=== PATIENT | male | born 2000 | race African-American/Black ===

== ENCOUNTER 2024-06-25 17:46 | Emergency (ER) | payer OTHER, SELFPAY ==
[2024-06-25 17:55] VITALS: BP 112/67; PULSE 90; RESP 16; TEMP 36.2; O2SAT 97; BMI 25.0
--- NOTE | 2024-06-25 18:07 | ED.GENADULT ---
HPI - General Adult General Date Seen: 06/25/24 Chief complaint: Skin/Abscess/Foreign Body Stated complaint: possible spider bite L thigh Time Seen by Provider: 06/25/24 18:05 History of Present Illness HPI narrative: 23-year-old her knee previously healthy male presenting to the ER today with his fiancee for evaluation of a ?spider bite? on his left medial proximal thigh. He noticed a small pimple on his left medial thigh about 2 days ago. He initially thought it probably was just that, a pimple. Since that has been getting gradually more painful and more swollen. Yesterday was larger, about the size of a quarter. Today there was a swollen area that is probably 2-3 cm in diameter surrounded by a fairly large area of erythema. He is having pain on the left medial thigh because it is tender. No other pain. No body aches. No fevers or chills. He is not diabetic or immunosuppressed. No history of MRSA. No other skin lesions. Related Data Previous Rx's ?Medication ?Instructions ?Recorded cephalexin 500 mg capsule 500 mg PO QID #28 caps 06/25/24 sulfamethoxazole 800 1 tab PO BID #14 tabs 06/25/24 mg-trimethoprim 160 mg tablet (Bactrim DS) Allergies Allergy/AdvReac Type Severity Reaction Status Date / Time No Known Drug Allergies Allergy Verified 06/25/24 17:59 [facility] Social History Smoking Status: Never smoker Do you use any of these nicotine containing products: None Second hand tobacco smoke exposure: No How often do you have a drink containing alcohol: never AUDIT-C Alcohol total score: 0 Non-prescribed substance use: denies use service: No Exam Narrative: Exam Narrative: Constitutional: Appears well-developed and well-nourished. Alert. Conversant. Non toxic. HENT: Head: Atraumatic. Nose: Nose normal. Mouth/Throat: Oral mucosa is clear and moist. no trismus. Eyes: Conjunctivae normal. EOM normal. Pupils equal, round, and reactive to light. No scleral icterus. Neck: Normal range of motion. Neck supple. No tracheal deviation present. Cardiovascular: Normal rate, regular rhythm. No gallop. No friction rub. No murmur heard. Symmetric radial artery pulses Pulmonary/Chest: Effort normal. No stridor. No respiratory distress. No wheezes. No rales. No rhonchi . No tenderness. Abdominal: Soft. Bowel sounds normal. No distension. No mass. No tenderness. No rebound. No guarding. Musculoskeletal: RUE: Normal range of motion. No tenderness. No deformity LUE: Normal range of motion. No tenderness. No deformity RLE: Normal range of motion. No edema. No tenderness. No deformity LLE: Normal range of motion. No edema. No tenderness. No deformity Lymph: No inguinal adenopathy. Neurological: Alert and oriented to person, place, and time. Normal strength. CN II-VII intact. No sensory deficit. GCS eye subscore is 4. GCS verbal subscore is 5. GCS motor subscore is 6. Normal coordination Skin: Patient has an area of erythema roughly 7 x 10 cm on his left medial thigh. Does not extend up to the groin. In the center of this there is or of a 2 x 3 cm area of indurated tissue and I suspect some fluctuance. In the center of this there is a small break in the skin that was probably a small pimple. No active drainage. No crepitus. Skin is otherwise warm and dry. No rash noted. No pallor. Normal capillary refill. Psychiatric: Normal mood. Normal affect. Const: Vital Signs, click to edit/add: Vital Signs - 24 hr 06/25/24 17:55 Temperature 97.1 F L Pulse Rate [Pulse Oximeter] 90 Respiratory Rate 16 Blood Pressure [Ri ght Upper Arm] 112/67 Pulse Oximetry 97 Oxygen Delivery Me thod Room Air Course Course ED Course: Exam is consistent with a left medial thigh cellulitis and probable abscess. I do not think this is a spider bite. Discussed with patient and his fiancee. They understand and agree. Bedside ultrasound performed. Procedure: Bedside ultrasound Indication: Skin infection, evaluate for abscess and fluid collection Using sterile technique and the high-frequency linear array probe we evaluated the area of redness and swelling on the patient's left medial thigh. We did discover a hypoechoic area area of fluid just below the skin measuring about 1 cm by 1 by 0.6 cm Impression: Positive for abscess Procedure: Incision and drainage. Discussed options and risk/pannus is with the procedure with the patient has fiance. Verbal consent was obtained. Sterile preparation of the skin using Betadine. Anesthesia was with local infiltration of 5 mL of 1% lidocaine with epi. Good anesthesia achieved. We made a single linear incision using 11 blade scalpel into the area of fluid. We did achieve purulent drainage. We expressed all purulent fluid. There was also minimal bleeding. Patient tolerated well with no discomfort. Vital Signs Vital signs: Initial Vital Signs Temperature 97.1 F L 06/25/24 17:55 Temperature Source Temporal Artery Scan 06/25/24 17:55 Pulse Rate 90 06/25/24 17:55 Pulse Rhythm Regular 06/25/24 17:55 Respiratory Rate 16 06/25/24 17:55 Blood Pressure 112/67 06/25/24 17:55 Blood Pressure Mean 82 06/25/24 17:55 Blood Pressure Position Sitting 06/25/24 17:55 Pulse Oximetry 97 06/25/24 17:55 Oxygen Delivery Method Room Air 06/25/24 17:55 Vital Signs Temperature 97.1 F L 06/25/24 17:55 Pulse Rate 90 06/25/24 17:55 Respiratory Rate 16 06/25/24 17:55 Blood Pressure 112/67 06/25/24 17:55 Pulse Oximetry 97 06/25/24 17:55 Oxygen Delivery Method Room Air 06/25/24 17:55 Temperature 97.1 F L 06/25/24 17:55 Pulse Rate 90 06/25/24 17:55 Respiratory Rate 16 06/25/24 17:55 Blood Pressure 112/67 06/25/24 17:55 Pulse Oximetry 97 06/25/24 17:55 Oxygen Delivery Method Room Air 06/25/24 17:55 Medications Administered Medications: Discontinued Medications Generic Name Dose Route Start Last Admin Trade Name Raquel PRN Reason Stop Dose Admin Cephalexin HCl 500 mg 06/25/24 19:14 06/25/24 19:23 Cephalexin 500 Mg Capsule PO 06/25/24 19:15 500 mg ONCE ONE Administration Lidocaine/Epinephrine 10 ml 06/25/24 18:34 06/25/24 19:18 Lidocaine 1%-Epi 1:100,000 10 Ml INFILTRATI 06/25/24 18:35 10 ml ONCE ONE Administration Trimethoprim/Sulfamethoxazole 1 tab 06/25/24 19:14 06/25/24 19:23 Sulfamethoxazole-Tmp Ds 800mg/160mg Tablet PO 06/25/24 19:15 1 tab ONCE ONE Administration Medical Decision Making MDM Narrative Medical decision making narrative: This patient presents with left medial thigh pain and redness. Pt has signs of an abscess. I&D performed and successfully expressed purulent drainage; see procedure note. No signs of serious infx like necrotizing fasciitis or rapid cellulitis given fever curve, spread of erythema over past 24 hours, no crepitance to tissues, no sensation change to tissues. Will need wound cares q day. Plan home w/ primary; may return to ED for wound check in 48 hours if cannot arrange. This was a small abscess pocket and would not be amenable to packing at this point. Antibiotics given as has some erythema and concerns about cellulitis. Will start on Bactrim and cephalexin to cover for MRSA as well as other skin sukhjinder. Warning signs for wound given on discharge instructions and verbally; see d/c instructions. Discharge Plan Discharge Clinical Impression: Abscess, Cellulitis Patient Disposition: Home, Self-Care Condition: Stable Instructions: Cellulitis (ED), Abscess (ED), Incision and Drainage (ED) Additional Instructions: As we discussed, start on the antibiotics tomorrow morning (you had your 1st dose here in the ER). Monitor the infected area carefully. If you have worsening swelling or spreading redness, develops high fever, or weakness, please come back to the ER right away. It will usually take 2 or 3 days of being on the antibiotics for the redness will start to get smaller. If you have any concerns, remember, come back to the ER right away. Prescriptions: New cephalexin 500 mg capsule 500 mg PO QID Qty: 28 0RF sulfamethoxazole-trimethoprim [Bactrim DS] 800-160 mg tablet 1 tab PO BID Qty: 14 0RF Stand Alone Forms: My[facility] Info Instructions
[2024-06-25] MEDS: cephALEXin 500 MG CAPSULE PO (19:23)
== END 2024-06-25 19:31 | disposition home or self-care (01) ==
LOC: ED 19:30
PROVIDERS: Emergency Provider Emergency Medicine
DX: L02.416 Cutaneous abscess of left lower limb (principal); L03.116 Cellulitis of left lower limb
CPT/HCPCS: 10060; 93971; 99282; 99283; A9270

== ENCOUNTER 2025-04-29 15:38 | Emergency (ER) | payer OTHER, SELFPAY ==
--- OUTSIDE RECORDS SUMMARY | 2025-04-29 15:40 | XMS_ITS | Referral Summary ---
Author Organization 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 20 tablet 06/10/2022 Active Social History Tobacco Use Types Packs/Day Years Used Date Smoking Tobacco: Never Assessed Humiliation, Afraid, Rape, and Kick questionnair e Answer Date Recorded Within the last year, have y ou been afraid of your partner or ex-partner? No 04/21/2024 Within the last year, have y ou been humiliated or emotionally abused in other ways by your partner or ex-partner? No Within the last year, have y ou been kicked, hit, slapped, or otherwise physically hurt by your partner or ex-partner? No 04/21/2024 Within the last year, have y ou been raped or forced to have any kind of sexual activity by your partner or ex-partner? No 04/21/2024 Sex and Gender Information Value Date Recorded Sex Assigned at Not on file Legal Sex Male 7:36 AM CDT Gender Identity Not on file Sexual Orientation Not on file Last Filed Vital Signs Vital Sign Reading Time Taken Comments Blood Pressure 114/74 04/21/2024 2:01 PM CDT Pulse 65 04/21/2024 2:01 PM CDT Temperature 36.8 C (98.2 F) 04/21/2024 2:01 PM CDT Respiratory Rate 16 04/21/2024 2:01 PM CDT Oxygen Saturation 100% 04/21/2024 2:01 PM CDT Inhaled Oxygen Concentration - - Weight - - Height 188 cm (6' 2) 04/21/2024 11:44 AM CDT Body Mass Index - - Plan of Treatment Not on file Insurance [employer] Care Teams Creamery Worker Relationship Specialty Start Date End Date Clinic, No Primary PCP - Primary Care Clinic 07/31/21 NoneMd PCP - General 07/31/21
--- OUTSIDE RECORDS SUMMARY | 2025-04-29 15:40 | XMS_ITS | Clinical Summary ---
Author Organization 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 Name Role Phone Clinic, No Primary Unavailable [...] Mass Index - - Plan of Treatment Health Maintenance Due Date Last Done Comments Hepatitis C Screening 1998 Anxiety Screening (DIONY-2) 1999 Depression Assessment (PHQ-2) 1999 Adult Tetanus Booster 12/14/2019 12/14/2009 COVID-19 Vaccine (2023-2 5 season) 2024 Influenza Vaccine (Season Ended) 2025 12/13/2015, 12/14/2009 RSV Vaccines (1 - 1-dose 75+ series) 2073 HPV Vaccine Completed 05/16/2013, 10/07/2012, 08/28/2012 Meningococcal B Vaccine Aged Out No l onger eligible based on patient's age to complete this topic Pneumococcal Vaccine Aged Out No long er eligible based on patient's age to complete this topic [place] [id number] Care Teams Cook Ice Cream Relationship Specialty Start Date End Date Clinic, No Primary PCP - Primary Care Clinic 07/31/21 Md Sarah PCP - General 07/31/21
[2025-04-29 15:58] VITALS: BP 118/74; PULSE 97; RESP 16; TEMP 36.8; O2SAT 97; BMI 24.4
[2025-04-29 16:33] LABS: Strep A DNA Probe* DETECTED (Not Detectd)
--- NOTE | 2025-04-29 16:46 | ED_ITS ---
HPI - General Adult General Date Seen: 04/29/25 Chief complaint: Unspecified Complaint, Adult Stated complaint: Hives across arms, torso Time Seen by Provider: 04/29/25 16:38 Source: patient Mode of arrival: ambulatory Limitations: no limitations History of Present Illness HPI narrative: Patient is a 24-year-old male presenting to the emergency department for concerns of a rash and sore throat patient states few days ago he started nose a sore throat that he rates a 6/10. That time he noticed a rash in the back of his throat. Started on Sunday he had a rash in his hands and back that initially thought there was related to his eczema. States it was a bunch of small bumps with and erythematous rash on his back the not seem to follow any specific pattern. The rash on his back has since gone away be still some small spots on his hands. Denies any difficulty swallowing. Denies any shortness of breath. Denies having a rash like this before. Does states he thinks he has strep throat. No other concerns noted. Denies chest pain, shortness of breath, arthritis, involuntary movement. Related Data Previous Rx's ?Medication ?Instructions ?Recorded amoxicillin 875 mg tablet 875 mg PO Q12H 10 days #20 t abs 04/29/25 Allergies Allergy/AdvReac Type Severity Reaction Status Date / Time shrimp Allergy Unknown Verified 04/29/25 16:02 Review of Systems Status of ROS: Reports: 10 or more systems reviewed and unremarkable except as noted in History and below PFS PFS Social History Smoking Status: Never smoker Do you use any of these nicotine containing products: None Second hand tobacco smoke exposure: No How often do you have a drink containing alcohol: never AUDIT-C Alcohol total score: 0 Non-prescribed substance use: denies use service: No Exam Narrative: Exam Narrative: Const: Well-nourished, Well-developed, in no distress Eyes: PERRL, no conjunctival injection, and symmetrical lids HENT: Atraumatic external nose and ears. Moist mucous membranes. Uvula midline, no tonsillar exudate, mild bilateral tonsillar swelling worse on the right. No mucosal abnormality seen on his palate Neck: Symmetric, trachea midline, No thyromegaly. CVS: RRR, No murmurs or gallops. Peripheral pulses 2+ and equal in all extremities RESP: Unlabored respiratory effort. Clear to auscultation bilaterally. GI: Nontender/Nondistended, No rebound or guarding. MSK:Extremities w/o deformity, Normal Active ROM Skin: Warm, Dry. No rashes or lesions. Patient does have small little bumps seen in the web spaces of both fingers that are skin colored Neuro: Normal Muscle tone, No focal neurological deficits. Psych: Awake, Alert, & Oriented x3. Appropriate mood and affect. Const: Vital Signs, click to edit/add: Vital Signs - 24 hr 04/29/25 15:58 Temperature 98.2 F Pulse Rate [Pulse Oximeter] 97 Respiratory Rate 16 Blood Pressure [Ri ght Upper Arm] 118/74 Pulse Oximetry 97 Oxygen Delivery Me thod Room Air Course Vital Signs Vital signs: Initial Vital Signs Temperature 98.2 F 04/29/25 15:58 Temperature Source Temporal Artery Scan 04/29/25 15:58 Pulse Rate 97 04/29/25 15:58 Respiratory Rate 16 04/29/25 15:58 Blood Pressure 118/74 04/29/25 15:58 Blood Pressure Mean 88 04/29/25 15:58 Blood Pressure Position Sitting 04/29/25 15:58 Pulse Oximetry 97 04/29/25 15:58 Oxygen Delivery Method Room Air 04/29/25 15:58 Vital Signs Temperature 98.2 F 04/29/25 15:58 Pulse Rate 97 04/29/25 15:58 Respiratory Rate 16 04/29/25 15:58 Blood Pressure 118/74 04/29/25 15:58 Pulse Oximetry 97 04/29/25 15:58 Oxygen Delivery Method Room Air 04/29/25 15:58 Temperature 98.2 F 04/29/25 15:58 Pulse Rate 97 04/29/25 15:58 Respiratory Rate 16 04/29/25 15:58 Blood Pressure 118/74 04/29/25 15:58 Pulse Oximetry 97 04/29/25 15:58 Oxygen Delivery Method Room Air 04/29/25 15:58 Medical Decision Making [facility] Narrative Medical decision making narrative: Patient is a 24-year-old male presenting for sore throat. Patient is not showing signs of peritonsillar abscess, Maico angina, retropharyngeal abscess,Lemierre disease or any other concerning oral pharynx or deep neck space abscesses. Imaging is not necessary. Strep test came back positive. The rash between his fingers his heart determine what it is from. There skin colored, small and palpable. Him and his friend in the room are adamant that previous rash on his back did not appear to have any kind of pattern or appear to be in a straight line which makes bedbugs less likely. They state the rash has back but just like the rash on his hand and this is not look like scabies in my opinion. Rash does not look like erythema marginatum. He is having no symptoms of rheumatic fever at this time. At this time I cannot say for certain what the rash is but I will discharge him home with antibiotics for his strep throat. Lab Data Labs: Lab Results 04/29/25 Range/Units 16:04 Group A Strep DNA DETECTED A (Not Detectd) Discharge Plan Discharge Clinical Impression: Strep throat Patient Disposition: Home, Self-Care Condition: Stable Instructions: Strep Throat (DC) Additional Instructions: I do not know for certain what is causing rash at this time. Currently I do not think it looks like scabies or bedbugs. Return to emergency department for new or worsening symptoms. Make sure to take the antibiotics for your strep throat. Prescriptions: New amoxicillin 875 mg tablet 875 mg PO Q12H 10 Days Qty: 20 0RF Follow Up/Referrals: Provider,Not a Local [Primary Care Provider, Family Practice] Stand Alone Forms: [facility] Info Instructions
== END 2025-04-29 17:00 | disposition home or self-care (01) ==
PROVIDERS: Emergency Provider Student in an Organized Health Care Education/Training Program
DX: J02.0 Streptococcal pharyngitis (principal); R21 Rash and other nonspecific skin eruption
CPT/HCPCS: 87651; 99283